=== PATIENT | male | born 1955 | race Caucasian/White ===

== ENCOUNTER → 2017-06-15 | Outpatient (CLI) | payer OTHER ==
[~2017-06-15] MED LIST: Cozaar PO; Ecotrin PO; Norvasc PO; Percocet 5/325,Endoc PO; Senokot S,Pericolace PO; celeBREX PO
== END | disposition home or self-care (01) ==
DX: R26.2 Difficulty in walking, not elsewhere classified (principal); M25.562 Pain in left knee; M25.662 Stiffness of left knee, not elsewhere classified; M17.12 Unilateral primary osteoarthritis, left knee; M62.81 Muscle weakness (generalized); Z74.1 Need for assistance with personal care
CPT/HCPCS: 97161 GP; 97165 GO; 97530 GP; 97537 GO

== ENCOUNTER 2017-07-18 22:03 | Inpatient (IN) | payer OTHER ==
[~2017-07-18] VITALS: Ht 172.7 cm; Wt 81.6 kg
[~2017-07-18 22:03] MED LIST changes: +COZAAR50 MG PO; +MOBIC15 MG PO; +NORVASC5 MG PO; +ZANTAC150 MG PO
[2017-07-19 09:41] VITALS: BP 164/88
[2017-07-19 13:58] LABS: HEMATOCRIT 39.4 % (38.0-50.0); MCH 32.3 PG (29.0-34.0); MCV 94.9 FL (86-99); MEAN PLAT.VOLUME 9.2 uM^3 (9.0-12.4); PLATELET COUNT 165 K/uL (156-360); RBC DIS.WIDTH-CV 12.3 % (11.8-14.6); RED BLOOD COUNT 4.15 M/uL (4.00-5.50); WHITE BLOOD COUNT 5.7 K/uL (4.1-10.2)
[2017-07-19 14:25] VITALS: BP 133/76
[2017-07-19 15:48] VITALS: BP 136/73
[2017-07-19 15:58] VITALS: BP 178/80
[2017-07-19 19:57] VITALS: BP 147/80
[2017-07-19 23:57] VITALS: BP 150/77
[2017-07-20 04:12] VITALS: BP 146/69
[2017-07-20 06:51] LABS: HEMATOCRIT 37.3 % (38.0-50.0); MCV 92.1 FL (86-99)
[2017-07-20 07:22] LABS: ANION GAP 7 MEQ/L (2-14); CHLORIDE 102 MEQ/L (99-109); GFR ESTIMATE (CALCULATED) > 59 mL/min/; GLUCOSE 116 mg/dL (70-99); SAMPLE HEMOLYSIS CHECK 1; SAMPLE ICTERIC CHECK 0; SAMPLE LIPEMIA CHECK 0; UREA NITROGEN (BUN) 13 mg/dL (9-23)
[2017-07-20 07:27] LABS: SODIUM 134 MEQ/L (136-147)
[2017-07-20 08:21] VITALS: BP 140/78
[2017-07-20 12:00] VITALS: BP 154/77
[2017-07-20] MEDS ORDERED: LOVENOX40 MG/0.4 SC (14:17)
[2017-07-20] MEDS ORDERED: ENDOCET 5-3251 EACH PO (14:17)
[2017-07-20 15:50] VITALS: BP 151/73
[2017-07-20 20:11] VITALS: BP 131/69
[2017-07-21 00:18] VITALS: BP 133/77
[2017-07-21 04:19] VITALS: BP 156/73
[2017-07-21 05:31] LABS: HEMATOCRIT 36.2 % (38.0-50.0); MCV 91.9 FL (86-99)
[2017-07-21 08:00] VITALS: BP 131/64
[2017-07-21 11:47] VITALS: BP 137/70
== END 2017-07-21 14:10 | DRG 470 ==
LOC: ENRESERV 22:03 → 2SOUTH 07-19 09:06 → 3WEST 07-19 14:04 → 2SOUTH 07-19 14:04 → 3WEST 07-21 14:10
PROVIDERS: Orthopaedic Surgery
PROC: 0SRD0J9 Replacement of Left Knee Joint with Synthetic Substitute, Cemented, Open Approach (ICD-10-PCS; principal; 2017-07-19)
PROC: 5A09357 Assistance with Respiratory Ventilation, Less than 24 Consecutive Hours, Continuous Positive Airway Pressure (ICD-10-PCS; 2017-07-20)
DX: M17.12 Unilateral primary osteoarthritis, left knee (principal); E87.1 Hypo-osmolality and hyponatremia; I10 Essential (primary) hypertension; J32.9 Chronic sinusitis, unspecified; G47.33 Obstructive sleep apnea (adult) (pediatric); Z96.651 Presence of right artificial knee joint
CPT/HCPCS: 73560; 80048; 85014; 85018; 85027; C1713; J0690; J1170; J1650; J2250; J2405; J3010; J3370; J7030; J7050

== ENCOUNTER 2018-02-27 08:16 | Emergency (ER) | payer OTHER ==
[~2018-02-27] VITALS: Ht 170.2 cm; Wt 85.2 kg
[~2018-02-27 08:16] MED LIST changes: +ENDOCET 5-3251 EACH PO; +LOVENOX40 MG/0.4 SC
[2018-02-27 10:33] LABS: APPEARANCE CLEAR ((CLEAR)); BILIRUBIN NEGATIVE; BLOOD NEGATIVE; COLOR YELLOW ((YELLOW)); GLUCOSE (STRIP) NEGATIVE; KETONES NEGATIVE; LEUKOCYTES NEGATIVE; NITRITE NEGATIVE; PROTEIN (STRIP) NEGATIVE; SPECIFIC GRAVITY 1.018 (1.000-1.030); UCUL ADDED? NO; UROBILINOGEN 0.2 MG/DL (0.2-1.0)
[2018-02-27] MEDS ORDERED: FLEXERIL10 MG PO (10:54)
[2018-02-27] MEDS ORDERED: PREDNISONE20 MG PO (10:54)
[2018-02-27] MEDS ORDERED: PERCOCET 5/31 TABLET PO (10:54)
[2018-02-27 11:20] VITALS: BP 152/91
== END 2018-02-27 11:23 | disposition home or self-care (01) ==
LOC: EME 08:16
PROVIDERS: Nurse Practitioner Family
DX: M54.42 Lumbago with sciatica, left side (principal); M79.605 Pain in left leg; Z96.653 Presence of artificial knee joint, bilateral
CPT/HCPCS: 72100; 81003; 99281; 99284; J1885; J7512